=== PATIENT | female | born 1995 | race Caucasian/White ===

== ENCOUNTER 2022-10-09 00:23 | Inpatient (IN) | payer OTHER ==
[~2022-10-09] VITALS: Ht 172.7 cm; Wt 139.1 kg
[2022-10-09] VITALS (32 sets, daily range): BP systolic 107–156; BP diastolic 56–94; PULSE 52–79; TEMP 97.5–97.9
--- NOTE | 2022-10-09 01:00 | NUR ---
0030: Pt ambulated onto unit floor, accompanied by pt spouse, and oriented to LDR4. Pt changed into exam gown. This nurse at pt bedside for introductions and POC discussion. Pt on external monitors x2 at 0037. VS obtained, assessments completed. Pt denies vaginal bleeding. Pt endorses LOF at around "2230. I felt like I peed myself but I had just peed. It was clear and running down my leg. I have been feeling ctx all since yesterday and into to today. They have been spaced out, like every 8 to 9 minutes." Amnioswab conducted, positive for LILY. SVE, with pt consent and explanation, /-3. POC updated. Questions, concerns, and needs encouraged. Pt verbalizes agreement and understanding of POC with "no" questions, concerns, or needs. 0045: SVE, with pt consent and explanation, /-3.
--- NOTE | 2022-10-09 01:30 | NUR ---
[id number]: Pt off external monitors x2, ambulating to utilize bathroom. 0008: Pt back on external monitors x2. 0115: 18G IV to . LR1 administered.
[2022-10-09 02:05] LABS: BASO % 0.2 % (0.0-2.0); EOS # 0.1 K/mm3 (0.0-0.7); EOS % 0.8 % (0.0-4.0); GRAN # 4.9 K/mm3 (1.4-6.5); GRAN % 58.9 % (42.2-75.2); HEMOGLOBIN 12.4 g/dl (12.5-16.0); LYMPH # 2.7 K/mm3 (1.2-3.4); LYMPH % 32.6 % (20.0-51.0); MEAN CELL VOLUME 92 fl (80.0-100.0); MEAN CORPUSCULAR HEMOGLOBIN 31 pg (27-31); MEAN CORPUSCULAR HGB CONC 34 g/dl (33.0-37.0); MONO # 0.6 K/mm3 (0.1-0.6); MONO % 7.4 % (1.7-9.3); PLATELET COUNT 170 K/mm3 (130-400); RED BLOOD COUNT 3.96 M/mm3 (4.10-5.30); REDCELL DISTRIBUTION WIDTH-CV 14.5 % (11.5-14.5)
[2022-10-09 02:06] LABS: HEMATOCRIT 36.3 % (37.0-47.0)
[2022-10-09] MEDS ORDERED: PRENATAL TABLET PO (02:10)
--- NOTE | 2022-10-09 03:00 | NUR ---
FHR tracing intermittently due to pt positioning and maternal habitus. movement and HR audible throughout room. This nurse at pt bedside palpating pt abd, with pt consent and explanation, attempting to readjust external monitors x2.
--- NOTE | 2022-10-09 03:30 | NUR ---
FHR and ctx tracing intermittently due to pt positioning and maternal habitus. This nurse at pt bedside palpating pt abd, with pt consent and explanation, attempting to readjust external monitors x2.
--- NOTE | 2022-10-09 04:00 | NUR ---
FHR tracing intermittently due to pt ambulating and pacing in room. This nurse at pt bedside palpating pt abd, with pt consent and explanation, attempting to readjust external monitors x2.
--- NOTE | 2022-10-09 04:30 | NUR ---
[id number]: Pt off external monitors x2, ambulating to utilize bathroom. 0423: Pt back on external monitors x2. Pt maneuvered into sitting position with back exposed for Harjit Arroyo CRNA to place epidural. Risks and benefits discussed. Pt verbalized udnerstanding and agreement of POC.
--- NOTE | 2022-10-09 05:00 | NUR ---
FHR tracing intermittently due pt position and maternal habitus. This nurse at pt bedside, with pt consent and explanation, attempting to readjsut external monitors x2. 0434: Harjit Arroyo CRNA test dose.
--- NOTE | 2022-10-09 06:04 | NUR ---
FHR tracing intermittently due to pt positioning. This nurse at pt bedside palpating pt abd, with pt consent and explanation, attempting to readjust external monitors x2.
[2022-10-09 06:18] LABS: TRICYCLIC ANTIDEPRESS URINE NEGATIVE
--- NOTE | 2022-10-09 06:30 | NUR ---
BLOOD PRESSURE READING NOT ACCURATE, CUFF IN CREASE OF PATIENTS ARM. BP CUFF READJUSTED AND BP RETAKEN AND BLOOD PRESSURE WNL AT THIS TIME.
--- NOTE | 2022-10-09 07:20 | NUR ---
0628- PATIENT COMPLETE AND -1 AT THIS TIME, PATIENT ALLOWED TO LABOR DOWN AT THIS TIME. PATIENT DOES NOT REPORT FEELING ANY PRESSURE AT THIS TIME. 0700- NOTIFIED OF PATIENT STATUS, SEE PHYSICIAN NOTIFICATION. 0720- CREWS DISCONTINUED AT THIS TIME BY RN TO BEGIN PUSHING.
--- NOTE | 2022-10-09 07:48 | NUR ---
0730- PATIENT BEGINS PUSHING WITH RN ASSISTANCE AT THIS TIME, PATIENT UNABLE TO FEEL CONTRACTIONS, RN PALPATING CONTRACTIONS TO ASSIST WITH PUSHING. PATIENT PUSHES WITH GOOD EFFORT AND MOVE HEAD WELL WITH PUSHES. 0748- REQUESTED TO BEDSIDE FOR DELIVERY, SEE PHYSICIAN NOTIFICATION. PATIENT INSTRUCTED TO STOP PUSHING UNTIL PROVIDER IS PRESENT.
--- NOTE | 2022-10-09 08:12 | NUR ---
0803- PATIENT INSTURCTED TO PUSH THROUGH CONTRACTION. HEAD +1. ON UNIT AT NURSES STATION. 0804- PATIENT VOMITING AT THIS TIME, HEAD WHILE PATIENT VOMITING. THIS RN AT DOOR TO HAVE COME TO BEDSIDE DUE TO IMINENT DELIVERY. 0806- AT BEDSIDE TO PREPARE FOR DELIVERY. DELIVERY OF HEAD AND BODY AT THIS TIME. PUTS ON GOWN AND GLOVES TO PERFORM BRITH CARE AND DELIVER PLACENTA. 0812- SPONTANEOUS DELIVERY OF PLACENTA AT THIS TIME.
--- NOTE | 2022-10-09 11:20 | NUR ---
RN IN PATIENTS ROOM TO ASSIST WITH AMBULATION TO THE RESTROOM. PATIENT REPORTS FEELING LIKE HER LEGS ARE STRONG ENOUGH TO WALK ON HER OWN. PATIENT ASSISTED TO SITTING ON EDGE OF THE BED FOR A MINUTE, THEN ASSISTED TO STAND. PATIENT REPORTS FEELING STEADY ENOUGH TO WALK, RN REMAINS IN FRONT OF PATIENT WITH EXTRA SUPPORT IF NEEDED. PATIENT AMBULATES TO RESTROOM AND VOIDS, VOID DID NOT GO INTO HAT. CHHAYA CARE PROVIDED AT THIS TIME, PATIENT ASSISTED INTO A CLEAN GOWN AND ASSISTED INTO A WHEEL CHAIR FOR TRANSFER TO .
--- NOTE | 2022-10-09 11:30 | NUR ---
PATIENT ORIENTED TO ROOM AT THIS TIME. PATIENT VERBALIZES THAT SHE WILL NEED TO MEASURE VOIDS FOR THE FIRST THREE THEN SHE WILL NO LONGER HAVE TO MEASURE VOIDS.
--- NOTE | 2022-10-09 18:30 | NUR ---
This nurse received report from Morelia Guillen RN. Pt has a superficial perineal tear, lochia WNL, no longer on void checks, and would need VS at 1999. 1835: This nurse at pt bedside for introductions and POC discussion. Pt has family and siblings of baby visiting. Questions, concerns, and needs encouraged. Pt verbalized understanding and agreement of POC with "no" questions, concerns, or needs.
--- NOTE | 2022-10-10 01:57 | NUR ---
1930: Pt visiting with family at bedside during this nurse hourly rounding. 2030: Pt with pt baby during this nurse hourly rounding. 0: Pt resting with pt spouse and baby during this nurse hourly rounding. 2230: Pt asleep during this nurse hourly rounding. Rise and fall of chest with non-laborous breathing noted. 2330: Pt watching a movie during this nurse hourly rounding. 0130: Pt asleep during this nurse hourly rounding. Rise and fall of chest with non-laborous breathing noted.
[2022-10-10 03:30] VITALS: BP 128/72; PULSE 80; TEMP 97.6
--- NOTE | 2022-10-10 05:09 | NUR ---
0330: Pt and pt spouse up, cuddling with pt baby during this nurse hourly rounding. VS obtained.
[2022-10-10 09:40] VITALS: BP 119/74; PULSE 71; TEMP 97.7
[2022-10-10] MEDS ORDERED: IBU600 MG PO (10:11)
== END 2022-10-10 12:52 | disposition home or self-care (01) | DRG 807 ==
LOC: LDRO 00:23 → LDR 01:57 → OB 11:30
PROVIDERS: ADMIT Obstetrics & Gynecology
PROC: 10E0XZZ Delivery of Products of Conception, External Approach (ICD-10-PCS; principal; 2022-10-09)
PROC: 0HQ9XZZ Repair Perineum Skin, External Approach (ICD-10-PCS; 2022-10-09)
DX: O48.0 Post-term pregnancy (principal); Z37.0 Single live birth; Z3A.41 41 weeks gestation of pregnancy; O99.214 Obesity complicating childbirth; O70.9 Perineal laceration during delivery, unspecified
CPT/HCPCS: J2590; J2795; J7120

== ENCOUNTER 2022-10-30 06:55 | Day surgery (SDC) | payer OTHER ==
[~2022-10-30] VITALS: Ht 170.2 cm; Wt 129.0 kg
[~2022-10-30 06:55] MED LIST: IBU600 MG PO; PERCOCET 325 MG1 TA2 PO; PRENATAL TABLET PO; ZOFRAN ODT4 MG PO
[2022-10-30 08:40] VITALS: BP 118/68; PULSE 60; TEMP 98.2
[2022-10-30] MEDS ORDERED: NORCO 325 MG-51 TAB PO (10:38)
[2022-10-30 11:15] VITALS: BP 128/67; PULSE 73; TEMP 97.3
[2022-10-30 11:30] VITALS: BP 131/80; PULSE 60
[2022-10-30 11:45] VITALS: BP 135/69; PULSE 65; TEMP 97.3
[2022-10-30 12:00] VITALS: BP 129/68; PULSE 68
[2022-10-30 12:30] VITALS: BP 115/56; PULSE 68; TEMP 97.2
--- NOTE | 2022-10-30 13:25 | NUR ---
1109 RECEIVED REPORT FROM MIKAYLA REBOLLAR IN PACU. 1115 PT RETURNED TO BAY 1 FROM PACU. PT ALERT AND ORIENTED, BREATHING EVEN AND UNLABORED. GIVEN APPLE JUICE FOR PO CHALLENGE TOAST WITH JELLY PROVIDED AFTER APPLE JUICE TOLERATED. 1312 PHYSICIAN DISCHARGE INSTRUCTIONS AND WRITTEN PT EDUCATIONAL MATERIALS REVIEWED WITH PT AND HER . QUESTIONS INVITED AND ANSWERED. 1315 PT AMBULATORY TO RESTROOM AND BACK TO BAY 1 WITH STEADY GAIT. 1325 PT TO LOBBY VIA WHEEL CHAIR FOR RIDE HOME WITH IN POV.
== END 2022-10-30 13:25 | disposition home or self-care (01) ==
LOC: SDCO 06:55
DX: K80.10 Calculus of gallbladder with chronic cholecystitis without obstruction (principal); E66.01 Morbid (severe) obesity due to excess calories; Z68.41 Body mass index [BMI] 40.0-44.9, adult; Z28.310 Unvaccinated for COVID-19
CPT/HCPCS: J0690; J1100; J1170; J1885; J2405; J2704; J3010; J7120